=== PATIENT | male | born 1980 | race Caucasian/White ===

== ENCOUNTER 2016-06-27 10:32 | Emergency (ER) | payer OTHER ==
[~2016-06-27 10:32] MED LIST: CLEOCIN HCL300 MG PO; HABITROL DPS21 MG TD; HUMALOG100 UNIT/1 SQ; LEVAQUIN DPS500 MG PO; LEVEMIR100 UNIT/1 SQ; NOVOLIN R,100 UNITS/ SQ; PEPCID DPS20 MG PO; SYNTHROID DPS0.1 MG PO; SYNTHROID125 MCG PO; TYLENOL DPS325 MG PO
== END 2016-06-27 12:40 | disposition home or self-care (01) ==
DX: R41.82 Altered mental status, unspecified (principal); E11.649 Type 2 diabetes mellitus with hypoglycemia without coma; E03.9 Hypothyroidism, unspecified; F17.210 Nicotine dependence, cigarettes, uncomplicated; Z88.2 Allergy status to sulfonamides; Z79.4 Long term (current) use of insulin; Z79.899 Other long term (current) drug therapy

== ENCOUNTER 2016-08-07 22:52 | Emergency (ER) | payer OTHER ==
--- NOTE | 2016-08-08 05:36 | ER ---
ADMIT: 08/07/2016 RM/LOC: ER [facility] MR#: [id number] [address] [facility] [address] JYOTI MIX [address] [place] [address] Emergency Room Report SEX: M AGE: 35 : 1980 DATE: 08/07/2016 The patient is a 35-year-old male with #31 toothache. Due to see oral surgeon next week. Exam remarkable for nontoxic, febrile male with #31 toothache, infra alveolar block with benzocaine topical, Marcaine 0.5 with epi with good results. Home with hydrocodone 5/325 #20 plus 6, Pen-Vee K 1 g p.o. load in department 500 q.i.d. #28. Follow up Dr. Donovan or oral surgeon next week. Mohinder Meehan MD/ noel JOB #: [id number] CC: Moihnder Meehan MD, Attending Physician Peewee Wilcox DO, Family Physician DOROTA Coulter DO
== END 2016-08-07 23:30 | disposition home or self-care (01) ==
LOC: ER 22:52
PROC: 3E0T3BZ Introduction of Anesthetic Agent into Peripheral Nerves and Plexi, Percutaneous Approach (ICD-10-PCS; principal; 2016-08-07)
DX: K08.89 Other specified disorders of teeth and supporting structures (principal); E10.9 Type 1 diabetes mellitus without complications

== ENCOUNTER 2016-09-25 02:55 | Emergency (ER) | payer SELFPAY ==
--- NOTE | 2016-09-28 19:04 | ER ---
ADMIT: 09/25/2016 RM/LOC: ER [facility] MR#: [id number] [address] [place], [place] [id number] JYOTI MIX [address] [place] [address] Emergency Room Report SEX: M AGE: 35 : 1980 DATE: 09/25/2016 HISTORY OF PRESENT ILLNESS: The patient is a 35-year-old male with a past medical history of diabetes and multiple hypoglycemia. They called the ambulance because of the left foot pain. Allegedly, the patient states that on the ball of the left foot, he has some pain because he hit some object which he could not recall what the object was. The patient was bearing weight over the left foot. Per EMS when they got to the scene to the home, the patient was mildly altered and confused and the fingerstick blood sugar showed level of 20. The patient received an amp of D50, the mental status improved and blood sugar increased to over 100. PHYSICAL EXAMINATION: GENERAL: In the ER, the patient is alert, oriented, and in [id number] distress because of the left foot pain. There are no other signs of trauma in the body. VITAL SIGNS: The patient has stable vitals. HEAD and NECK: Normal. CHEST: Clear. HEART: Normal heart sounds. ABDOMEN: Soft. EXTREMITIES: Range of motion in all extremities are normal. On the medial ball of the left foot, there is mild abrasion and swelling and tenderness over the area. EMERGENCY ROOM COURSE: Fingerstick blood sugar was repeated twice and was normal. X-ray of the left foot did not show any fracture, dislocation, or subluxation. With diagnoses of hypoglycemia and left foot contusion, the patient was discharged to home. The patient received complex carbohydrate both in the ambulance and in the ER. The patient was counseled about the risks and dangers of hypoglycemia and was advised to follow up with the primary doctor closely. The patient acknowledged he understood and was discharged to home with return precautions. Soham Bejarano MD/ noel JOB #: [id number] CC: Soham Bejarano MD, Attending Physician Peewee Wilcox DO, Family Physician
== END 2016-09-25 04:30 | disposition home or self-care (01) ==
LOC: ER 02:55
DX: S90.32XA Contusion of left foot, initial encounter (principal); E11.649 Type 2 diabetes mellitus with hypoglycemia without coma; E03.9 Hypothyroidism, unspecified; F17.210 Nicotine dependence, cigarettes, uncomplicated; Z88.2 Allergy status to sulfonamides; Z79.899 Other long term (current) drug therapy; W22.8XXA Striking against or struck by other objects, initial encounter; Y92.009 Unspecified place in unspecified non-institutional (private) residence as the place of occurrence of the external cause

== ENCOUNTER 2016-09-25 12:57 | Emergency (ER) | payer SELFPAY ==
--- NOTE | 2016-10-10 15:51 | ER ---
ADMIT: 09/25/2016 RM/LOC: ER [facility] MR#: [id number] [address] [facility] [address] JYOTI MIX [address] [place] [address] Emergency Room Report SEX: M AGE: 35 : 1980 DATE: 09/25/2016 ADDENDUM: CHIEF COMPLAINT: Left foot pain. HISTORY OF PRESENT ILLNESS: This is a 35-year-old male who had a hypoglycemic event at home. He was up in the middle of the night, found him kicking things and said he was trying to climb onto the bridge. Noticed that he had extremely swollen foot after she got his blood sugar, brought him into the ER. CT is done of his foot today. He fractured his medial, middle, and lateral cuneiform along with the metatarsals. I did speak with Dr. Barker regarding this patient. He said at this time, put a posterior splint and have him follow up on Tuesday. DISPOSITION: I am sending him home with crutches and [place] for pain, having him ice, elevate through the weekend and again see Dr. Barker on Tuesday. TRENA Hills / Sae Baker MD / noel JOB #: [id number] CC: Gene Gallardo MD, Attending Physician
== END 2016-09-25 15:12 | disposition home or self-care (01) ==
LOC: ER 12:57
PROC: 2W3RX1Z Immobilization of Left Lower Leg using Splint (ICD-10-PCS; principal; 2016-09-25)
DX: S92.322A Displaced fracture of second metatarsal bone, left foot, initial encounter for closed fracture (principal); S92.332A Displaced fracture of third metatarsal bone, left foot, initial encounter for closed fracture; S92.342A Displaced fracture of fourth metatarsal bone, left foot, initial encounter for closed fracture; S92.222A Displaced fracture of lateral cuneiform of left foot, initial encounter for closed fracture; F17.210 Nicotine dependence, cigarettes, uncomplicated; E11.9 Type 2 diabetes mellitus without complications; Z88.1 Allergy status to other antibiotic agents; Z79.4 Long term (current) use of insulin; Z79.899 Other long term (current) drug therapy; W22.8XXA Striking against or struck by other objects, initial encounter; Y92.009 Unspecified place in unspecified non-institutional (private) residence as the place of occurrence of the external cause

== ENCOUNTER 2016-09-26 10:54 | Emergency (ER) | payer SELFPAY ==
--- NOTE | 2016-09-26 21:33 | ER ---
ADMIT: 09/26/2016 RM/LOC: ER [facility] MR#: [id number] [id number] [place], [place] [address] JYOTI MIX [address] [place] [address] Emergency Room Report SEX: M AGE: 35 : 1980 DATE: 09/26/2016 ADDENDUM: CHIEF COMPLAINT: Splint removed. HISTORY OF PRESENT ILLNESS: This is a 35-year-old male who I saw in the ER yesterday. He was placed a posterior splint for multiple fractures in his foot, sent him home. He said he was trying to ice his foot and get ice in there better, so he took his splint off. He tried to glue it to replace it, but just when he put it back on, it just did not feel right. [place] like it was rubbing on the side of his foot. When I removed the splint, he does have an abrasion where the splint was rubbing where he replaced it. The padding was mostly gone. I did replace the splint. I put a nonstick pad on the abrasion, adding extra layers of padding, I re-splinted and I am still having him followup tomorrow. He said his pain really has not been controlled well with hydrocodone, so I sent him home with Percocet, dispensed 20. CLINICAL IMPRESSION: Replacement of splint for fractures of cuneiforms, medial middle, and lateral metatarsals of second, third, and fourth. TRENA Hills / Shaheen Garcia MD / malloryl JOB #: [id number] CC: Shaheen Garcia MD, Attending Physician
== END 2016-09-26 11:50 | disposition home or self-care (01) ==
LOC: ER 10:54
PROC: 2W3TX1Z Immobilization of Left Foot using Splint (ICD-10-PCS; principal; 2016-09-26)
DX: S92.222D Displaced fracture of lateral cuneiform of left foot, subsequent encounter for fracture with routine healing (principal); S92.242D Displaced fracture of medial cuneiform of left foot, subsequent encounter for fracture with routine healing; F17.210 Nicotine dependence, cigarettes, uncomplicated; E11.9 Type 2 diabetes mellitus without complications; Z88.2 Allergy status to sulfonamides; X58.XXXD Exposure to other specified factors, subsequent encounter